=== PATIENT | male | born 1995 | race Hispanic/Latino ===

== ENCOUNTER 2025-04-14 16:55 | Emergency (ER) | payer OTHER, SELFPAY ==
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
[2025-04-14 17:58] VITALS: BP 128/78; TEMP 98.1; O2SAT 100
== END 2025-04-14 17:11 | disposition home or self-care (01) ==
LOC: ER 16:55
DX: Z48.89 Encounter for other specified surgical aftercare (principal)
CPT/HCPCS: 99281